=== PATIENT | male | born 1970 | race Two or more races ===

== ENCOUNTER 2025-01-05 04:33 | Emergency (ER) | payer MEDICAID, SELFPAY ==
[2025-01-05 04:34] VITALS: BMI 27.6
[2025-01-05 04:44] VITALS: BP 124/74; PULSE 55; RESP 16; TEMP 36.6; O2SAT 96
--- NOTE | 2025-01-05 04:47 | XR_ITS ---
Examination: AP chest single view. TECHNIQUE: AP portable upright chest single view Exam date and time: January 05, 2025 0455 hours Comparison September 28, 2023. INDICATIONS: Shortness of breath today. FINDINGS: Atelectasis versus early pneumonia left base. Right lung clear. Normal heart size. Old fracture right seventh rib IMPRESSION: Atelectasis versus early pneumonia left base, clinical correlation advised
--- NOTE | 2025-01-05 04:48 | PD.EDSOB ---
ED SOB =RME/HPI General Chief Complaint: Flu Like Symptoms Stated Complaint: SOB AND SORE THROAT Time Seen by Provider: 01/05/25 04:48 Arrival date/time: 01/05/25 04:33 RME / HPI RME / HPI Narrative: This section includes all my notes and documentations, including HPI, PE, and ED course. Sameer Goncalves MD HPI: 54 year old male here with about a week history of worsening cough, productive cough, purulent sputum, and dyspnea. No obvious fever. No other complaints. ROS: All negative except as documented in HPI. Physical Exam: General: Alert and oriented. Hacking cough noted. Eyes: Conjunctivae and lids clear. ENT: No nasal congestion. Neck: Supple. Heart: RRR. Lungs: Stridor noted. Mildy decreased air movement with bilateral rhonchi. Skin: Warm and dry. Neuro: Alert and oriented X 3. I reviewed all diagnostic test results. My interpretation of the chest x-ray is increased bronchial markings. Covid and Influenaza negative. At this point, diagnoses include Respiratory Infection. Treatment here included Prednisone, Benadrtyl, and Epinephrine/DuoNeb treatments. Significant improvement noted. Based on my best medical judgment, made decision no further evaluation or treatment indicated at this time. Patient understands and agrees to the discharge instructions customized and printed, see below. Discharge instructions from Dr. Goncalves: --No physical exertion for 3 days to help rest the lungs. ?No smoking or exposure to smoking or pets or dust or cold or humidity. --Zithromax and cefdinir to kill the germs causing the bronchitis. --Prednisone to help decrease the swelling in the airways. --Albuterol 2 puffs (with the spacer) every 4-6 hours today and tomorrow to help keep the airways open. Then as needed for cough or shortness of breath. --See a private doctor on 01/07/2025 for recheck. Ask for a referral to see a lung specialist. To make sure you don't have serious underlying lung condition, such as asthma or COPD. --Seek immediate medical care with worsening or with any concerns. Sameer Goncalves MD Related Data Home Medications ?Medication ?Instructions ?Recorded ?Confirmed famotidine 40 mg tablet (Pepcid) 20 mg PO BID #0 tabs 07/29/16 03/19/20 pantoprazole 40 mg tablet,delayed 40 mg PO QDAY 03/19/20 03/19/20 release Previous Rx's ?Medication ?Instructions ?Recorded baclofen 10 mg tablet 10 mg PO QHSPRN #20 tabs 03/30/23 ibuprofen 800 mg tablet (IBU) 800 mg PO Q6H #30 tabs 03/30/23 IBU 800 mg tablet (ibuprofen) 800 mg PO Q6H PRN pain #30 tabs 09/28/23 acetaminophen 500 mg tablet 500 mg PO Q6H PRN fever or pain 09/28/23 (Tylenol Extra Strength) #30 tabs promethazine-DM 6.25 mg-15 mg/5 mL 5 ml PO Q6H #120 mL 09/28/23 oral syrup pseudoephedrine HCl 30 mg tablet 30 mg PO Q12HR #14 tabs 09/28/23 (Sudafed) albuterol sulfate 90 mcg/actuation 2 puff inhalation Q6H PRN 01/05/25 aerosol inhaler shortness of breath or wheezing #8.5 grams cefdinir 300 mg capsule 300 mg PO BID #14 caps 01/05/25 prednisone 50 mg tablet 50 mg PO QDAY #3 tabs 01/05/25 Allergies Allergy/AdvReac Type Severity Reaction Status Date / Time No Known Allergies Allergy Verified 09/28/23 08:22 Course Quality Measures none Orders Category Date Time Status Bedside COVID-19 Antigen Test NOW Care 01/05/25 04:46 Completed Bedside Influenza A&B Antigen Test NOW Care 01/05/25 04:46 Completed Referral Respiratory Therapy Stat Cons 01/05/25 05:18 Active XR chest 1V portable Stat Exams 01/05/25 04:47 Completed Albuterol/Ipratr Rt Mary [Duoneb Rt Mary] Med 01/05/25 04:46 Discontinued 3 ml INH X1 ONE DiphenhydrAMINE [Benadryl] Med 01/05/25 04:46 Discontinued 12.5 mg PO X1 ONE EPINEPHrine Rt Mary [Racemic Epi Rt Mary] Med 01/05/25 04:46 Discontinued 1 ml INH X1 ONE Sodium Chloride Rt Mary 0.9% [NS Rt Mary 0.9%] Med 01/05/25 04:46 Discontinued 3 ml INH PRN PRN predniSONE Med 01/05/25 04:46 Discontinued 60 mg PO X1 ONE Vital Signs Vital signs: Vital Signs Temperature 97.8 F 01/05/25 04:44 Pulse Rate 55 L 01/05/25 04:44 Respiratory Rate 16 01/05/25 04:44 Blood Pressure 124/74 01/05/25 04:44 Pulse Oximetry (%) 96 01/05/25 04:44 Oxygen Delivery Method Room Air 01/05/25 04:44 Shortness of Breath / Dyspnea Patient data External records reviewed:: [facility] previous records Clinical information provided by:: patient Social determinants that could affect healthcare access:: none Patient has the following chronic illnesses:: None How is presenting disease/condition affected by chronic disease/condition?: no chronic disease Evaluation data The following diagnostics were reviewed and interpreted by me:: lab results and radiology exam(s) Lab and/or radiology exams considered but not ordered:: None Interpretation Summary: Normal diagnostics Medications / Prescriptions Medications or Prescriptions considered but not ordered:: None Medication administrations:: Medication Administration History Discontinued Medications Albuterol/Ipratropium (Albuterol/Ipratropium (Duoneb) Rt Mary 3 Ml Nebu) 3 ml INH X1 ONE Stop: 01/05/25 04:47 Last Admin: 01/05/25 05:16 Dose: 3 ml Documented By: JAVED Diphenhydramine HCl (Diphenhydramine Elix 25 Mg/10 [facility] [place]) 12.5 mg PO X1 ONE Stop: 01/05/25 04:47 Last Admin: 01/05/25 05:35 Dose: 12.5 mg Documented By: REJI Epinephrine (Epinephrine Rt Mary 0.5 Ml Nebu) 1 ml INH X1 ONE Stop: 01/05/25 04:47 Last Admin: 01/05/25 05:03 Dose: 1 ml Documented By: JAVED Prednisone (Prednisone 20 Mg Tablet) 60 mg PO X1 ONE Stop: 01/05/25 04:47 Last Admin: 01/05/25 05:35 Dose: 60 mg Documented By: REJI Sodium Chloride (Sodium Chloride Rt Mary 0.9% 3 Ml Nebu) 3 ml INH PRN PRN PRN Reason: SOLN Stop: 02/04/25 04:45 Last Admin: 01/05/25 05:04 Dose: 3 ml Documented By: JAVED prednisone, benadryl, and neb treatments Consultations Consultation(s) initiated? (list below): No Diagnosis Shortness of Breath Differential Diagnosis: acute exacerbation of chronic obstructive airways disease, congestive heart failure, community acquired pneumonia and asthma with exacerbation Most likely diagnosis given after review of the tests above:: Respiratory infection Admission Indicated Admission indicated?: not indicated Explain why admission is indicated or not indicated:: With significant improvement, there was no indication for admission. Admission Request Was there a request for admission?: No Disposition Plan Disposition Plan: Discharge Discharge Attestation Discharge Attestation: The patient and all family members were given an opportunity to ask questions and understood the discharge instructions. Discharge instructions specifically effects, indications for sooner follow up or return to the emergency department, and the expected course of current diagnosis. Patient condition: Stable Discharge Plan Plan Patient Disposition: HOME (Self Care) Prescriptions/Referrals Prescriptions/Med Rec: New prednisone 50 mg tablet 50 mg PO QDAY Qty: 3 0RF albuterol sulfate 90 mcg/actuation HFA aerosol inhaler 2 puff inhalation Q6H PRN (Reason: shortness of breath or wheezing) Qty: 8.5 0RF cefdinir 300 mg capsule 300 mg PO BID Qty: 14 0RF No Action famotidine [Pepcid] 40 MG tablet 20 mg PO BID Qty: 0 Patient Comments: TO SUPPRESS GASTRIC ACID SECRETIONS pantoprazole 40 mg Tablet,Delayed Release (Dr/Ec) 40 mg PO QDAY baclofen 10 mg tablet 10 mg PO QHSPRN Qty: 20 0RF ibuprofen [IBU] 800 mg tablet 800 mg PO Q6H Qty: 30 0RF pseudoephedrine HCl [Sudafed] 30 mg tablet 30 mg PO Q12HR Qty: 14 0RF promethazine-DM 6.25-15 mg/5 mL syrup 5 ml PO Q6H Qty: 120 0RF acetaminophen [Tylenol Extra Strength] 500 mg tablet 500 mg PO Q6H PRN (Reason: fever or pain) Qty: 30 0RF ibuprofen [IBU] 800 mg tablet 800 mg PO Q6H PRN (Reason: pain) Qty: 30 0RF Referrals: Temporary Provider,ED [Physician] - In 1 week Problem List Clinical Impression: Acute respiratory infection Patient/Caregiver Discharge Instructions Discharge Activity: activity as tolerated Education Materials: ED Bronchitis with Wheezing (Adult) Additional Instructions: Discharge instructions from Dr. Goncalves: --No physical exertion for 3 days to help rest the lungs. ?No smoking or exposure to smoking or pets or dust or cold or humidity. --Zithromax and cefdinir to kill the germs causing the bronchitis. --Prednisone to help decrease the swelling in the airways. --Albuterol 2 puffs (with the spacer) every 4-6 hours today and tomorrow to help keep the airways open. Then as needed for cough or shortness of breath. --See a private doctor on 01/07/2025 for recheck. Ask for a referral to see a lung specialist. To make sure you don't have serious underlying lung condition, such as asthma or COPD. --Seek immediate medical care with worsening or with any concerns. Print Language: Amharic Stand Alone Forms: Janiya Award Info., Patient Portal Info Letter
[2025-01-05] MEDS: EPINEPHrine RT SOL 0.5 ML NEBU 1 ML INH (05:03)
[2025-01-05 05:04] VITALS: PULSE 64; RESP 20; O2SAT 99
[2025-01-05] MEDS: SODIUM CHLORIDE RT SOL 0.9% 3 ML NEBU INH (05:04)
[2025-01-05] MEDS: ALBUTEROL/IPRATROPIUM (Duoneb) RT SOL 3 ML NEBU INH (05:16)
[2025-01-05 05:17] VITALS: PULSE 58; RESP 18; O2SAT 96
[2025-01-05] MEDS: predniSONE 20 MG TABLET 60 MG PO (05:35)
[2025-01-05] MEDS: DiphenhydrAMINE ELIX 25 MG/10 ML UDC 12.5 MG PO (05:35)
[2025-01-05 05:38] VITALS: BP 140/86; PULSE 52; RESP 16; TEMP 36.4; O2SAT 93
== END 2025-01-05 05:38 | disposition home or self-care (01) ==
PROVIDERS: Emergency Provider Emergency Medicine; PCP Nurse Practitioner Family
DX: J22 Unspecified acute lower respiratory infection (principal)
CPT/HCPCS: 71045; 87400; 87811; 94640; 99283; A9270; J7512